=== PATIENT | male | born 1985 ===

== ENCOUNTER 2021-02-13 16:16 | Outpatient (CLI) | payer OTHER ==
--- NOTE | 2021-02-13 17:05 | XRAY Report ---
PROCEDURE: Finger(s) LT INDICATIONS: LEFT FIFTH DIGIT PAIN TECHNIQUE: AP hand, 3 views of the fifth finger(s) acquired. COMPARISON: None FINDINGS: Bones: No fractures or dislocations. No suspicious bony lesions. Soft tissues: No suspicious soft tissue calcifications. IMPRESSION: No displaced fracture identified. If pain persist with conservative management, consider repeat exami nation or cross-sectional imaging. Reviewed by: CHELA Gustafson on 02/13/2021 5:04 PM PDT Approved by: Ana María Glass MD on 02/13/2021 5:04 PM PDT Station ID: [id number]
== END 2021-02-13 16:17 | disposition home or self-care (01) ==
LOC: DI.N 16:16
PROVIDERS: ATTEND Internal Medicine
DX: S63.657A Sprain of metacarpophalangeal joint of left little finger, initial encounter (principal)